=== PATIENT | female | born 1950 | race Caucasian/White ===

== ENCOUNTER 2018-02-17 14:47 | Observation (INO) | payer OTHER ==
--- NOTE | 2018-02-17 15:12 | EDM.PDOC ---
ED HPI GENERAL MEDICAL PROBLEM - General Chief Complaint: Chest Pain Stated Complaint: CHEST PAIN Time Seen by Provider: 02/17/18 14:50 Source of Information: Reports: Patient History Limitations: Reports: No Limitations - History of Present Illness INITIAL COMMENTS - FREE TEXT/NARRATIVE: Ayla arrived at work this am and climbed a flight of stairs to her work station about 9 am today. She next experienced an unusual tightening sensation affecting the neck that seemed to radiate to involve the anterior upper chest. Sxs would last about 30 sec and then subside, only to recurr. There was no keisha chest pain, SOB, sweats, nausea, palpitations, lt headiness, or LOC. Sxs persisted all morning, and she eventually drove 2 blocks to the Clinic about 2 pm for assessment. The Clinic sent her to [facility] for evaluation. Upon arrival, she is asx, 12 lead ekg notes NSR with LBBB. Her VSS. Chest Pain Score (Numeric/FACES): 3 - Related Data Allergies Allergy/AdvReac Type Severity Reaction Status Date / Time Iodinated Contrast- Oral and Allergy Hives Verified 02/17/18 14:54 IV Dye Sulfa (Sulfonamide Allergy Hives Verified 02/17/18 14:54 Antibiotics) Home Meds: Home Meds Levothyroxine [Synthroid] 100 mcg PO DAILY 02/17/18 [History] Past Medical History Endocrine/Metabolic History: Reports: Hypothyroidism ED ROS GENERAL - Review of Systems Review Of Systems: See Below Constitutional: Reports: No Symptoms HEENT: Reports: No Symptoms Respiratory: Reports: No Symptoms Cardiovascular: Reports: Chest Pain (not typical) Endocrine: Reports: No Symptoms : Reports: No Symptoms Musculoskeletal: Reports: Neck Pain (neck tightening "as though someone was pulling a rag through a hole") Skin: Reports: No Symptoms Neurological: Reports: No Symptoms Psychiatric: Reports: No Symptoms Hematologic/Lymphatic: Reports: No Symptoms Immunologic: Reports: No Symptoms ED EXAM, GENERAL - Physical Exam Exam: See Below Exam Limited By: No Limitations General Appearance: Alert, WD/WN, No Apparent Distress Eye Exam: Bilateral Eye: EOMI, Normal Inspection, PERRL Ears: Normal External Exam Nose: Normal Inspection Throat/Mouth: Normal Inspection, Normal Teeth, Normal Oropharynx, Normal Voice, No Airway Compromise Head: Normocephalic Neck: Normal Inspection, Supple, Non-Tender, Full Range of Motion Respiratory/Chest: No Respiratory Distress, Lungs Clear, Normal Breath Sounds, No Accessory Muscle Use, Chest Non-Tender Cardiovascular: Normal Peripheral Pulses, Regular Rate, Rhythm, No Edema, No Murmur GI/Abdominal: Normal Bowel Sounds, Soft, Non-Tender, No Organomegaly, No Distention, No Mass (Female) Exam: Deferred Rectal (Female) Exam: Deferred Back Exam: Normal Inspection, Full Range of Motion Extremities: Normal Inspection, Normal Range of Motion, Non-Tender Neurological: Alert, Oriented, CN II-XII Intact, Normal Cognition, No Motor/ Sensory Deficits Psychiatric: Normal Affect, Normal Mood Skin Exam: Warm, Dry, Intact, Normal Color Lymphatic: No Adenopathy Course - Vital Signs Text/Narrative:: Following assessment in the [facility] ED, a 12 lead ekg noted NSR with LBBB, age unknown. The chest x ray was satisfactory. The CBC, CMP, Troponin I and d dimer were all baseline. The patient remained asx during the 2 hour observation, with slight sensation of the neck only to report. An [facility] report of Holter Monitor noted NSR, occ PVC, and no mention of LBBB. She will be admitted to Observation, telemetry, with follow up ekg and Troponin levels this evening and tomorrow am. Patient is in agreement with this COA. - Orders/Labs/Meds Orders: Active Orders 24 hr Category Date Time Status Chest 1V Frontal [CR] Stat Exams 02/17/18 15:05 Taken Sodium Chloride 0.9% [Saline Flush] Med 02/17/18 15:05 Active 10 ml FLUSH ASDIRECTED PRN Peripheral IV Insertion Adult [OM.PC] Routine Oth 02/17/18 15:05 Ordered EKG 12 Lead [EK] Routine Ther 02/17/18 14:50 Ordered Medication Orders Sodium Chloride (Saline Flush) 10 ml FLUSH ASDIRECTED PRN PRN Reason: Keep Vein Open Last Admin: 02/17/18 15:26 Dose: 10 ml Labs: Laboratory Tests 02/17/18 02/17/18 02/17/18 Range/Units 15:10 15:10 15:10 WBC 5.5 (4.5-12.0) X10-3/uL RBC 4.70 (3.23-5.20) x10(6)uL Hgb 14.4 (11.5-15.5) g/dL Hct 42.5 (30.0-51.3) % MCV 90.5 (80-96) fL MCH 30.6 (27.7-33.6) pg MCHC 33.8 (32.2-35.4) g/dL RDW 11.9 (11.5-15.5) % Plt Count 238 (125-369) X10(3)uL MPV 8.0 (7.4-10.4) fL Neut % (Auto) 72.9 (46-82) % Lymph % (Auto) 20.9 (13-37) % [place] % (Auto) 4.8 (4-12) % Eos % (Auto) 0 L (1.0-5.0) % Baso % (Auto) 1 (0-2) % Neut # (Auto) 3.9 (1.6-8.3) # Lymph # (Auto) 1.1 (0.6-5.0) # [place] # (Auto) 0.3 (0.0-1.3) # Eos # (Auto) 0.0 (0.0-0.8) # Baso # (Auto) 0.1 (0.0-0.2) # D-Dimer, Quantitative < 100 L (100-400) ng/mL Sodium 143 (135-145) mmol/L Potassium 3.8 (3.5-5.3) mmol/L Chloride 104 (100-110) mmol/L Carbon Dioxide 31 (21-32) mmol/L BUN 15 (7-18) mg/dL Creatinine 0.9 (0.55-1.02) mg/dL Est Cr Clr Drug Dosing 45.14 mL/min Estimated GFR (MDRD) > 60 (>60) BUN/Creatinine Ratio 16.7 (9-20) Glucose 129 H (80-116) mg/dL Calcium 9.3 (8.6-10.2) mg/dL Total Bilirubin 0.3 (0.1-1.3) mg/dL AST 20 (5-25) IU/L ALT 10 L (12-36) U/L Alkaline Phosphatase 65 (56-112) IU/L Troponin I (<0.017-0.056) ng/mL Total Protein 7.5 (6.0-8.0) g/dL Albumin 4.0 (3.2-4.6) g/dL Globulin 3.5 g/dL Albumin/Globulin Ratio 1.1 02/17/18 Range/Units 15:10 WBC (4.5-12.0) X10-3/uL RBC (3.23-5.20) x10(6)uL Hgb (11.5-15.5) g/dL Hct (30.0-51.3) % MCV (80-96) fL MCH (27.7-33.6) pg MCHC (32.2-35.4) g/dL RDW (11.5-15.5) % Plt Count (125-369) X10(3)uL MPV (7.4-10.4) fL Neut % (Auto) (46-82) % Lymph % (Auto) (13-37) % [place] % (Auto) (4-12) % Eos % (Auto) (1.0-5.0) % Baso % (Auto) (0-2) % Neut # (Auto) (1.6-8.3) # Lymph # (Auto) (0.6-5.0) # [place] # (Auto) (0.0-1.3) # Eos # (Auto) (0.0-0.8) # Baso # (Auto) (0.0-0.2) # D-Dimer, Quantitative (100-400) ng/mL Sodium (135-145) mmol/L Potassium (3.5-5.3) mmol/L Chloride (100-110) mmol/L Carbon Dioxide (21-32) mmol/L BUN (7-18) mg/dL Creatinine (0.55-1.02) mg/dL Est Cr Clr Drug Dosing mL/min Estimated GFR (MDRD) (>60) BUN/Creatinine Ratio (9-20) Glucose (80-116) mg/dL Calcium (8.6-10.2) mg/dL Total Bilirubin (0.1-1.3) mg/dL AST (5-25) IU/L ALT (12-36) U/L Alkaline Phosphatase (56-112) IU/L Troponin I < 0.017 L (<0.017-0.056) ng/mL Total Protein (6.0-8.0) g/dL Albumin (3.2-4.6) g/dL Globulin g/dL Albumin/Globulin Ratio Meds: Medications Generic Name Dose Route Start Last Admin Trade Name Fabiánq PRN Reason Stop Dose Admin Sodium Chloride 10 ml 02/17/18 15:05 02/17/18 15:26 Saline Flush FLUSH 10 ml ASDIRECTED PRN Administration Keep Vein Open Departure - Departure Time of Disposition: 16:46 Disposition: Refer to Observation Condition: Good Clinical Impression: Atypical chest pain, Left bundle branch block (LBBB) Referrals: Nickie Hernandez, ACCOUNTS RECEIVABLE ASSISTANT [Primary Care Provider] - Forms: ED Department Discharge - Problem List & Annotations (1) Atypical chest pain SNOMED Code(s): 702179691 Code(s): R07.89 - OTHER CHEST PAIN Status: Acute Current Visit: Yes Annotation/Comment:: Admit to Observation. (2) Left bundle branch block (LBBB) SNOMED Code(s): 25456586 Code(s): I44.7 - LEFT BUNDLE-BRANCH BLOCK, UNSPECIFIED Status: Acute Current Visit: Yes Annotation/Comment:: Admit to Observation. - Problem List Review Problem List Initiated/Reviewed/Updated: Yes - My Orders Last 24 Hours: My Active Orders 02/17/18 14:50 EKG 12 Lead [EK] Routine 02/17/18 15:05 Chest 1V Frontal [CR] Stat Sodium Chloride 0.9% [Saline Flush] 10 ml FLUSH ASDIRECTED PRN Peripheral IV Insertion Adult [OM.PC] Routine - Assessment/Plan Last 24 Hours: My Active Orders 02/17/18 14:50 EKG 12 Lead [EK] Routine 02/17/18 15:05 Chest 1V Frontal [CR] Stat Sodium Chloride 0.9% [Saline Flush] 10 ml FLUSH ASDIRECTED PRN Peripheral IV Insertion Adult [OM.PC] Routine Plan: Follow up with Hospitalist in am.
[2018-02-17] MEDS: Sodium Chloride 0.9% 10 ML Syringe FLUSH PRN (15:26)
--- NOTE | 2018-02-17 20:36 | PCM.HP ---
H&P History of Present Illness - General Date of Service: 02/17/18 Admit Problem/Dx: Admission Diagnosis/Problem Admission Diagnosis/Problem Atypical chest pain Source of Information: Patient History Limitations: Reports: No Limitations - History of Present Illness Initial Comments - Free Text/Narative: Ayla presents with the atypical chest pain started this morning. Was insidious in onset described as tightening and 'sloshing' sensation or fluttering of the chest. Because of a strong family history of coronary disease (a father from heart attack and a brother 57 had heart attack),she opted to come in. She denies any keisha chest pain shortness of breath and indeed all other systems are negative. A previous medical history is only consistent with hypothyroidism. She quit smoking more than 20 years ago. She works as a human teacher resource a stressful job Chest Pain Score (Numeric/FACES): 0 - Related Data Allergies/Adverse Reactions: Allergies Allergy/AdvReac Type Severity Reaction Status Date / Time Iodinated Contrast- Oral and Allergy Hives Verified 02/17/18 14:54 IV Dye Sulfa (Sulfonamide Allergy Hives Verified 02/17/18 14:54 Antibiotics) Home Medications: Home Meds Levothyroxine [Synthroid] 100 mcg PO DAILY 02/17/18 [History] Past Medical History Cardiovascular History: Reports: Other (See Below) Other Cardiovascular History: palpitations Endocrine/Metabolic History: Reports: Hypothyroidism Oncologic (Cancer) History: Reports: Breast Dermatologic History: Reports: Other (See Below) Other Dermatologic History: basal cell skin CA - Past Surgical History HEENT Surgical History: Reports: Tonsillectomy Female Surgical History: Reports: Breast Biopsy, Other (See Below) Other Female Surgeries/Procedures: lumpectomy Social & Family History - Family History Cardiac: Reports: AR, Stent - Tobacco Use Smoking Status *Q: Former Smoker Packs/Tins Daily: 0 Used Tobacco, but Quit: Yes Month/Year Tobacco Last Used: 1997 Second Hand Smoke Exposure: No - Caffeine Use Caffeine Use: Reports: Coffee, Soda - Alcohol Use Days Per Week of Alcohol Use: 1 Number of Drinks Per Day: 1 Total Drinks Per Week: 1 - Recreational Drug Use Recreational Drug Use: No H&P Review of Systems - Review of Systems: Review Of Systems: ROS reveals no pertinent complaints other than HPI. Exam - Exam Exam: See Below - Vital Signs Vital Signs: Last Vital Signs Temp 98.2 F 02/17/18 20:05 Pulse 91 02/17/18 20:05 Resp 16 02/17/18 20:05 BP 136/82 02/17/18 20:05 Pulse Ox 98 02/17/18 20:05 Weight: 61.416 kg - Exam General: Alert, Oriented, 4 HEENT: PERRLA, Hearing Intact, Mucosa Moist & [place], Nares Patent, Normal Nasal Septum, Posterior Pharynx Clear, Conjunctiva Clear, EOMI, EACs Clear, TMs Clear Neck: Supple, Trachea Midline, 2 Lungs: Clear to Auscultation, Normal Respiratory Effort Cardiovascular: Regular Rate, Regular Rhythm GI/Abdominal Exam: Normal Bowel Sounds, Soft, Non-Tender, No Organomegaly, No Distention, No Abnormal Bruit, No Mass, Pelvis Stable (Female) Exam: Deferred Rectal (Female) Exam: Deferred Back Exam: Normal Inspection, Full Range of Motion, NT Extremities: Normal Inspection, Normal Range of Motion, Non-Tender, No Pedal Edema, Normal Capillary Refill Skin: Warm, Dry, Intact Neurological: Cranial Nerves Intact, Reflexes Equal Bilateral Neuro Extensive - Mental Status: Alert, Oriented x3, Normal Mood/Affect, Normal Cognition Neuro Extensive - Motor, Sensory, Reflexes: CN II-XII Intact, Normal Gait, Normal Reflexes Psychiatric: Alert, Normal Affect, Normal Mood - Patient Data Lab Results Last 24 hrs: Laboratory Results - last 24 hr 02/17/18 02/17/18 02/17/18 Range/Units 15:10 15:10 15:10 WBC 5.5 (4.5-12.0) X10-3/uL RBC 4.70 (3.23-5.20) x10(6)uL Hgb 14.4 (11.5-15.5) g/dL Hct 42.5 (30.0-51.3) % MCV 90.5 (80-96) fL MCH 30.6 (27.7-33.6) pg MCHC 33.8 (32.2-35.4) g/dL RDW 11.9 (11.5-15.5) % Plt Count 238 (125-369) X10(3)uL MPV 8.0 (7.4-10.4) fL Neut % (Auto) 72.9 (46-82) % Lymph % (Auto) 20.9 (13-37) % Christian % (Auto) 4.8 (4-12) % Eos % (Auto) 0 L (1.0-5.0) % Baso % (Auto) 1 (0-2) % Neut # (Auto) 3.9 (1.6-8.3) # Lymph # (Auto) 1.1 (0.6-5.0) # Christian # (Auto) 0.3 (0.0-1.3) # Eos # (Auto) 0.0 (0.0-0.8) # Baso # (Auto) 0.1 (0.0-0.2) # D-Dimer, Quantitative < 100 L (100-400) ng/mL Sodium 143 (135-145) mmol/L Potassium 3.8 (3.5-5.3) mmol/L Chloride 104 (100-110) mmol/L Carbon Dioxide 31 (21-32) mmol/L BUN 15 (7-18) mg/dL Creatinine 0.9 (0.55-1.02) mg/dL Est Cr Clr Drug Dosing 45.14 mL/min Estimated GFR (MDRD) > 60 (>60) BUN/Creatinine Ratio 16.7 (9-20) Glucose 129 H (80-116) mg/dL Calcium 9.3 (8.6-10.2) mg/dL Total Bilirubin 0.3 (0.1-1.3) mg/dL AST 20 (5-25) IU/L ALT 10 L (12-36) U/L Alkaline Phosphatase 65 (56-112) IU/L Troponin I (<0.017-0.056) ng/mL Total Protein 7.5 (6.0-8.0) g/dL Albumin 4.0 (3.2-4.6) g/dL Globulin 3.5 g/dL Albumin/Globulin Ratio 1.1 02/17/18 Range/Units 15:10 WBC (4.5-12.0) X10-3/uL RBC (3.23-5.20) x10(6)uL Hgb (11.5-15.5) g/dL Hct (30.0-51.3) % MCV (80-96) fL MCH (27.7-33.6) pg MCHC (32.2-35.4) g/dL RDW (11.5-15.5) % Plt Count (125-369) X10(3)uL MPV (7.4-10.4) fL Neut % (Auto) (46-82) % Lymph % (Auto) (13-37) % Christian % (Auto) (4-12) % Eos % (Auto) (1.0-5.0) % Baso % (Auto) (0-2) % Neut # (Auto) (1.6-8.3) # Lymph # (Auto) (0.6-5.0) # Christian # (Auto) (0.0-1.3) # Eos # (Auto) (0.0-0.8) # Baso # (Auto) (0.0-0.2) # D-Dimer, Quantitative (100-400) ng/mL Sodium (135-145) mmol/L Potassium (3.5-5.3) mmol/L Chloride (100-110) mmol/L Carbon Dioxide (21-32) mmol/L BUN (7-18) mg/dL Creatinine (0.55-1.02) mg/dL Est Cr Clr Drug Dosing mL/min Estimated GFR (MDRD) (>60) BUN/Creatinine Ratio (9-20) Glucose (80-116) mg/dL Calcium (8.6-10.2) mg/dL Total Bilirubin (0.1-1.3) mg/dL AST (5-25) IU/L ALT (12-36) U/L Alkaline Phosphatase (56-112) IU/L Troponin I < 0.017 L (<0.017-0.056) ng/mL Total Protein (6.0-8.0) g/dL Albumin (3.2-4.6) g/dL Globulin g/dL Albumin/Globulin Ratio Result Diagrams: 02/17/18 15:10 02/17/18 15:10 EKG INTERPRETATION Rhythm: NSR QRS: LBBB Comparison: Change From Previous EKG - Problem List (1) Hypothyroid SNOMED Code(s): 92184086 ICD Code: E03.9 - HYPOTHYROIDISM, UNSPECIFIED Status: Chronic Current Visit: Yes Qualifiers: Hypothyroidism type: unspecified Qualified Code(s): E03.9 - Hypothyroidism , unspecified (2) Atypical chest pain SNOMED Code(s): 681752115 ICD Code: R07.89 - OTHER CHEST PAIN Status: Acute Current Visit: Yes Problem Details: Admit to Observation. (3) Left bundle branch block (LBBB) SNOMED Code(s): 36084150 ICD Code: I44.7 - LEFT BUNDLE-BRANCH BLOCK, UNSPECIFIED Status: Acute Current Visit: Yes Problem Details: Admit to Observation. Problem List Initiated/Reviewed/Updated: Yes Orders Last 24hrs: Active Orders 24 hr Category Date Time Status Patient Status Manage Transfer [TRANSFER] Routine ADT 02/17/18 16:47 Active Patient Status [ADT] Routine ADT 02/17/18 20:28 Active Cardiac Monitoring [RC] CONTINUOUS Care 02/17/18 20:30 Active EKG Documentation Completion [RC] ASDIRECTED Care 02/17/18 20:30 Active Oxygen Therapy [RC] PRN Care 02/17/18 20:28 Active Up With Assistance [RC] ASDIRECTED Care 02/17/18 20:28 Active VTE/DVT Education [RC] Per Unit Routine Care 02/17/18 20:28 Active Vital Signs [RC] Q8H Care 02/17/18 20:28 Active Cardiac Diet [Heart Healthy Diet] [DIET] Diet 02/18/18 Breakfast Active Chest 1V Frontal [CR] Stat Exams 02/17/18 15:05 Taken BASIC METABOLIC PANEL,BMP [CHEM] AM Lab 02/18/18 05:11 Ordered MAGNESIUM [CHEM] AM Lab 02/18/18 05:11 Ordered TROPONIN I [CHEM] AM Lab 02/18/18 05:11 Ordered TSH ULTRASENSITIVE [CHEM] AM Lab 02/18/18 05:11 Ordered Levothyroxine [Synthroid] Med 02/18/18 09:00 Ordered 100 mcg PO DAILY Sodium Chloride 0.9% [Saline Flush] Med 02/17/18 15:05 Active 10 ml FLUSH ASDIRECTED PRN Peripheral IV Insertion Adult [OM.PC] Routine Oth 02/17/18 15:05 Ordered Resuscitation Status Routine Resus Stat 02/17/18 20:28 Ordered EKG 12 Lead [EK] AM Ther 02/18/18 05:11 Ordered EKG 12 Lead [EK] Routine Ther 02/17/18 14:50 Ordered Medication Orders Levothyroxine Sodium (Synthroid) 100 mcg PO DAILY MAYA Sodium Chloride (Saline Flush) 10 ml FLUSH ASDIRECTED PRN PRN Reason: Keep Vein Open Last Admin: 02/17/18 15:26 Dose: 10 ml Assessment/Plan Comment:: We'll keep overnight, repeat cardiac enzymes in the morning and repeat EKG, if all negative then discharge home perhaps have an ambulatory stress test next week.
[2018-02-18 05:51] VITALS: BP 132/77
[2018-02-18] MEDS: Levothyroxine 100 MCG Tab**OWN MED PO SCH (08:30)
--- NOTE | 2018-02-18 09:06 | PCM.PN ---
- General Info Date of Service: 02/18/18 Subjective Update: Ayla feels much better this morning with no complaints of chest pain pressure or fluttering. - Review of Systems Pulmonary: Reports: No Symptoms Cardiovascular: Reports: No Symptoms Gastrointestinal: Reports: No Symptoms - Patient Data Vitals - Most Recent: Last Vital Signs Temp 98.1 F 02/18/18 04:28 Pulse 87 02/18/18 04:28 Resp 16 02/18/18 04:28 BP 132/77 02/18/18 04:28 Pulse Ox 98 02/18/18 04:28 Weight - Most Recent: 61.416 kg Lab Results Last 24 Hours: Laboratory Results - last 24 hr 02/17/18 02/17/18 02/17/18 Range/Units 15:10 15:10 15:10 WBC 5.5 (4.5-12.0) X10-3/uL RBC 4.70 (3.23-5.20) x10(6)uL Hgb 14.4 (11.5-15.5) g/dL Hct 42.5 (30.0-51.3) % MCV 90.5 (80-96) fL MCH 30.6 (27.7-33.6) pg MCHC 33.8 (32.2-35.4) g/dL RDW 11.9 (11.5-15.5) % Plt Count 238 (125-369) X10(3)uL MPV 8.0 (7.4-10.4) fL Neut % (Auto) 72.9 (46-82) % Lymph % (Auto) 20.9 (13-37) % [place] % (Auto) 4.8 (4-12) % Eos % (Auto) 0 L (1.0-5.0) % Baso % (Auto) 1 (0-2) % Neut # (Auto) 3.9 (1.6-8.3) # Lymph # (Auto) 1.1 (0.6-5.0) # [place] # (Auto) 0.3 (0.0-1.3) # Eos # (Auto) 0.0 (0.0-0.8) # Baso # (Auto) 0.1 (0.0-0.2) # D-Dimer, Quantitative < 100 L (100-400) ng/mL Sodium 143 (135-145) mmol/L Potassium 3.8 (3.5-5.3) mmol/L Chloride 104 (100-110) mmol/L Carbon Dioxide 31 (21-32) mmol/L BUN 15 (7-18) mg/dL Creatinine 0.9 (0.55-1.02) mg/dL Est Cr Clr Drug Dosing 45.14 mL/min Estimated GFR (MDRD) > 60 (>60) BUN/Creatinine Ratio 16.7 (9-20) Glucose 129 H (80-116) mg/dL Calcium 9.3 (8.6-10.2) mg/dL Magnesium (1.8-2.5) mg/dL Total Bilirubin 0.3 (0.1-1.3) mg/dL AST 20 (5-25) IU/L ALT 10 L (12-36) U/L Alkaline Phosphatase 65 (56-112) IU/L Troponin I (<0.017-0.056) ng/mL Total Protein 7.5 (6.0-8.0) g/dL Albumin 4.0 (3.2-4.6) g/dL Globulin 3.5 g/dL Albumin/Globulin Ratio 1.1 TSH, Ultra Sensitive (0.36-3.74) IU/mL 02/17/18 02/18/18 02/18/18 Range/Units 15:10 06:30 06:30 WBC (4.5-12.0) X10-3/uL RBC (3.23-5.20) x10(6)uL Hgb (11.5-15.5) g/dL Hct (30.0-51.3) % MCV (80-96) fL MCH (27.7-33.6) pg MCHC (32.2-35.4) g/dL RDW (11.5-15.5) % Plt Count (125-369) X10(3)uL MPV (7.4-10.4) fL Neut % (Auto) (46-82) % Lymph % (Auto) (13-37) % [place] % (Auto) (4-12) % Eos % (Auto) (1.0-5.0) % Baso % (Auto) (0-2) % Neut # (Auto) (1.6-8.3) # Lymph # (Auto) (0.6-5.0) # [place] # (Auto) (0.0-1.3) # Eos # (Auto) (0.0-0.8) # Baso # (Auto) (0.0-0.2) # D-Dimer, Quantitative (100-400) ng/mL Sodium 143 (135-145) mmol/L Potassium 3.8 (3.5-5.3) mmol/L Chloride 106 (100-110) mmol/L Carbon Dioxide 31 (21-32) mmol/L BUN 13 (7-18) mg/dL Creatinine 0.9 (0.55-1.02) mg/dL Est Cr Clr Drug Dosing 45.14 mL/min Estimated GFR (MDRD) > 60 (>60) BUN/Creatinine Ratio 14.4 (9-20) Glucose 98 (80-116) mg/dL Calcium 9.2 (8.6-10.2) mg/dL Magnesium 2.0 (1.8-2.5) mg/dL Total Bilirubin (0.1-1.3) mg/dL AST (5-25) IU/L ALT (12-36) U/L Alkaline Phosphatase (56-112) IU/L Troponin I < 0.017 L < 0.017 L (<0.017-0.056) ng/mL Total Protein (6.0-8.0) g/dL Albumin (3.2-4.6) g/dL Globulin g/dL Albumin/Globulin Ratio TSH, Ultra Sensitive 0.32 L (0.36-3.74) IU/mL Med Orders - Current: Current Medications Levothyroxine Sodium (Synthroid) 100 mcg PO DAILY [facility] Last Admin: 02/18/18 08:30 Dose: Not Given Sodium Chloride (Saline Flush) 10 ml FLUSH ASDIRECTED PRN PRN Reason: Keep Vein Open Last Admin: 02/17/18 15:26 Dose: 10 ml - Exam General: Alert, Oriented HEENT: Pupils Equal, Pupils Reactive, EOMI, Mucous Membr. Moist/[place] Neck: Supple Lungs: Clear to Auscultation, Normal Respiratory Effort Cardiovascular: Regular Rate, Regular Rhythm EKG INTERPRETATION Rhythm: NSR QRS: LBBB - Problem List & Annotations (1) Hypothyroid SNOMED Code(s): 10439585 Code(s): E03.9 - HYPOTHYROIDISM, UNSPECIFIED Status: Chronic Current Visit: Yes Qualifiers: Hypothyroidism type: unspecified Qualified Code(s): E03.9 - Hypothyroidism , unspecified (2) Atypical chest pain SNOMED Code(s): 791940235 Code(s): R07.89 - OTHER CHEST PAIN Status: Acute Current Visit: Yes Annotation/Comment:: Admit to Observation. (3) Left bundle branch block (LBBB) SNOMED Code(s): 81274994 Code(s): I44.7 - LEFT BUNDLE-BRANCH BLOCK, UNSPECIFIED Status: Acute Current Visit: Yes Annotation/Comment:: Admit to Observation. - Problem List Review Problem List Initiated/Reviewed/Updated: Yes - My Orders Last 24 Hours: My Active Orders 02/17/18 20:28 Patient Status [ADT] Routine Oxygen Therapy [RC] PRN Up With Assistance [RC] ASDIRECTED VTE/DVT Education [RC] Per Unit Routine Vital Signs [RC] Q8H Resuscitation Status Routine 02/17/18 20:30 Cardiac Monitoring [RC] CONTINUOUS 02/18/18 05:11 EKG 12 Lead [EK] AM 02/18/18 09:00 Levothyroxine [Synthroid] 100 mcg PO DAILY 02/18/18 Breakfast Cardiac Diet [Heart Healthy Diet] [DIET] - Plan Plan:: Discharged home today. May need follow-up for thyroid and for atypical chest pain perhaps a stress test on an ambulatory basis. Return to the ED with any worsening symptoms.
--- NOTE | 2018-02-19 12:04 | CR ---
INDICATION: Chest pain. CHEST: An AP upright portable view of the chest 02/17/2018 was compared with , revealing interval removal of an A-Port. Overlying EKG leads are noted at this time. The heart remains normal in size and shape. The aorta is tortuous with calcification in the arch, similar to the previous study. A definite active infiltrate or effusion was not identified. IMPRESSION: No acute process. MTDD
== END 2018-02-18 09:30 | disposition home or self-care (01) ==
LOC: FB.ED 14:47 → FB.MS 16:47
PROVIDERS: ADMIT Family Medicine; ATTEND Family Medicine
DX: R07.89 Other chest pain (principal); E03.9 Hypothyroidism, unspecified; C44.91 Basal cell carcinoma of skin, unspecified; I44.7 Left bundle-branch block, unspecified; Z79.899 Other long term (current) drug therapy; Z88.2 Allergy status to sulfonamides; Z91.048 Other nonmedicinal substance allergy status; Z90.89 Acquired absence of other organs; Z98.890 Other specified postprocedural states; Z87.891 Personal history of nicotine dependence; Z82.49 Family history of ischemic heart disease and other diseases of the circulatory system
CPT/HCPCS: 36415; 71045; 80048; 80053; 83735; 84443; 84484; 85025; 85379; 93005; 99285; G0378; J7050

== ENCOUNTER 2025-06-09 21:45 | Emergency (ER) | payer MEDICARE, BC ==
[2025-06-09 22:31] LABS: MEAN PLATELET VOLUME 8.8 fL (7.1-12.4); PLATELET COUNT,PLT 88 x10(3)uL (151-488); RED BLOOD CELL COUNT 2.91 x10(6)uL (3.60-5.20); RED CELL DISTRIBUTION WIDTH 16.2 % (12.3-16.5)
[2025-06-09 22:35] LABS: BLOOD UREA NITROGEN,BUN 18 mg/dL (7-18); CARBON DIOXIDE,CO2 34 mmol/L (21-32); CHLORIDE,CL 101 mmol/L (100-110); CREATININE 1.0 mg/dL (0.55-1.02); ESTIMATED GFR 59 mL/min (>60); GLUCOSE RANDOM 123 mg/dL (80-116); POTASSIUM,K 3.3 mmol/L (3.5-5.3); SODIUM,NA 141 mmol/L (135-145)
[2025-06-09 22:41] LABS: A/G RATIO 1.4; ALANINE AMINOTRANSFERASE,ALT 17 U/L (12-36); ASPARTATE AMNIOTRANSFERASE,AST 18 IU/L (5-25); BILIRUBIN TOTAL 0.4 mg/dL (0.1-1.3); PROTEIN TOTAL,TP 6.4 g/dL (6.0-8.0)
[2025-06-09 22:44] LABS: WHITE BLOOD CELL COUNT,WBC 1.6 x10-3/uL (3.0-10.3)
[2025-06-09 22:59] LABS: BASOPHILS PERCENT MAN 1 % (0-2); LYMPHOCYTES PERCENT MAN 43 % (13-37); MONOCYTES PERCENT MAN 8 % (4-12); SEG NEUTROPHILS PERCENT MAN 48 % (46-82)
== END 2025-06-09 23:25 | disposition home or self-care (01) ==
LOC: FB.ED 21:45
DX: R55 Syncope and collapse (principal); K52.9 Noninfective gastroenteritis and colitis, unspecified; I10 Essential (primary) hypertension; E03.9 Hypothyroidism, unspecified; Z88.2 Allergy status to sulfonamides; Z91.041 Radiographic dye allergy status; Z79.890 Hormone replacement therapy
CPT/HCPCS: 36415; 70450; 80053; 82947; 84484; 85025; 93005; 93010; 99283; 99285